=== PATIENT | male | born 1940 | race Caucasian/White ===

== ENCOUNTER → 2022-02-13 14:02 | Outpatient (BNVA) | payer MEDICARE, SELFPAY | PROVIDERS: PCP Internal Medicine; Visit Provider Psychiatry & Neurology Neurology | DX: M47.812 Spondylosis without myelopathy or radiculopathy, cervical region (principal); M48.02 Spinal stenosis, cervical region; G62.9 Polyneuropathy, unspecified; G47.62 Sleep related leg cramps; Z79.899 Other long term (current) drug therapy | CPT/HCPCS: 99212 ==

== ENCOUNTER 2023-01-20 13:48 | Outpatient (REF) | payer SELFPAY | END 2023-01-20 13:49 | disposition home or self-care (01) | LOC: HO.HAP 13:48 | PROVIDERS: Visit Provider Internal Medicine | DX: Z13.89 Encounter for screening for other disorder (principal) ==

== ENCOUNTER → 2023-02-10 15:19 | Outpatient (BNVA) | payer MEDICARE, OTHER, SELFPAY | PROVIDERS: PCP Internal Medicine; Visit Provider Psychiatry & Neurology Neurology | DX: M47.812 Spondylosis without myelopathy or radiculopathy, cervical region (principal); M48.02 Spinal stenosis, cervical region; G62.9 Polyneuropathy, unspecified; G47.62 Sleep related leg cramps; Z79.899 Other long term (current) drug therapy | CPT/HCPCS: 99212 ==

== ENCOUNTER 2023-03-13 10:37 | Outpatient (REF) | payer SELFPAY | END 2023-03-13 10:38 | disposition home or self-care (01) | LOC: HO.HAP 10:37 | PROVIDERS: Visit Provider Internal Medicine | DX: Z46.1 Encounter for fitting and adjustment of hearing aid (principal); H90.3 Sensorineural hearing loss, bilateral | CPT/HCPCS: V5267 ==

== ENCOUNTER 2023-06-11 10:13 | Outpatient (REF) | payer SELFPAY | END 2023-06-11 10:14 | disposition home or self-care (01) | LOC: HO.HAP 10:13 | PROVIDERS: Visit Provider Internal Medicine | DX: Z46.1 Encounter for fitting and adjustment of hearing aid (principal); H90.3 Sensorineural hearing loss, bilateral | CPT/HCPCS: V5267 ==

== ENCOUNTER 2023-08-12 13:47 | Outpatient (AMB) | payer MEDICARE, SELFPAY ==
--- NOTE | 2023-08-12 13:48 | MHC.OFFVIS ---
Intake Vital Signs 08/12/23 13:52 Weight 190 lb 4 oz BP 138/82 Blood Pressure Location Lt brachial Position Sitting Respiration 17 Pulse 76 Pulse Source Palpation Pulse Oximetry (%) 97 Oxygen Delivery Method Room Air Intake Visit Reasons: 6m follow up neuropathy-LVM Intake Note: Pt presents to the office for a 6 month follow up for neuropathy. 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 .No worsening of neuropathy He reports right shoulder pain His balance is good , no falls. 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 He still has residual numbness in right fingers sec to radiculopathy. he also has carpal tunnel syndrome and had surgery 3 years ago and is better His legs cramps are better with gabapentin. No difficulty with bladder or bowel PFSH Medical History Arthritis Carpal tunnel syndrome Hearing loss HTN (hypertension) Hyperlipidemia Neck pain Surgical History History of carpal tunnel release Hx of cataract surgery Social History Household Members: Spouse Alcohol intake: current Alcohol intake frequency: holidays/special occasions only Patient Tobacco Use Status: Former Tobacco user Physical Exam Vital Signs: Last Vital Signs Pulse 76 08/12/23 13:52 Resp 17 08/12/23 13:52 BP 138/82 08/12/23 13:52 Pulse Ox 97 08/12/23 13:52 Oxygen Delivery Method Room Air 08/12/23 13:52 Const General: cooperative, healthy appearing and comfortable Nutritional Appearance: average body habitus Orientation/consciousness: patient oriented x3 Eyes Pupils: Equal, round and reactive pupils present Neuro General: patient oriented x3 Cranial nerves: Yes CN's II-XII intact bilaterally, Yes Facial sensation intact/muscles of mastication intact, Yes Equal, round and reactive pupils present and Yes Normal facial strength present Cognition (Neuro): normal cognition Gait exam (Neuro): Other gait observations present (mild slowness, mild off balance) Motor exam (neuro): 5/5 motor strength present throughout Deep tendon reflexes (DTR's): Right triceps reflex intensity grade: 1+, Left triceps reflex intensity grade: 1+, Rt Biceps (C5, C6): 1+, Left biceps reflex intensity grade: 1+, Right brachioradialis reflex intensity grade: 1+, Left brachioradialis reflex intensity grade: 1+, Right patellar reflex intensity grade: 1+ and Left patellar reflex intensity grade: 1+ Assessment & Plan Assessment & Plan (1) Cervical spondylosis: Code(s): M47.812 - Spondylosis without myelopathy or radiculopathy, cervical region (2) Spinal stenosis of cervical region: Code(s): M48.02 - Spinal stenosis, cervical region (3) Neuropathy: Code(s): G62.9 - Polyneuropathy, unspecified (4) Nocturnal leg cramps: Code(s): G47.62 - Sleep related leg cramps Plan Continue gabapentin 300mg qhs Continue exercises Coding Level of Care Code Est Pt Level 4 (84805) Diagnoses Cervical spondylosis M47.812 Spinal stenosis of cervical region M48.02 Neuropathy G62.9 Nocturnal leg cramps G47.62
[2023-08-12 13:52] VITALS: BP 138/82; PULSE 76; RESP 17; O2SAT 97
== END 2023-08-12 14:06 | disposition home or self-care (01) ==
PROVIDERS: PCP Internal Medicine; Visit Provider Psychiatry & Neurology Neurology
DX: M47.812 Spondylosis without myelopathy or radiculopathy, cervical region (principal); M48.02 Spinal stenosis, cervical region; G62.9 Polyneuropathy, unspecified; G47.62 Sleep related leg cramps
CPT/HCPCS: 99214

== ENCOUNTER → 2023-08-12 13:47 | Outpatient (BNVA) | payer MEDICARE, SELFPAY | PROVIDERS: PCP Internal Medicine; Visit Provider Psychiatry & Neurology Neurology | DX: M47.812 Spondylosis without myelopathy or radiculopathy, cervical region (principal); M48.02 Spinal stenosis, cervical region; G62.9 Polyneuropathy, unspecified; G47.62 Sleep related leg cramps | CPT/HCPCS: 99212 ==

== ENCOUNTER 2023-08-27 10:11 | Outpatient (REF) | payer SELFPAY | END 2023-08-27 10:12 | disposition home or self-care (01) | LOC: HO.HAP 10:11 | PROVIDERS: Visit Provider Internal Medicine | DX: Z46.1 Encounter for fitting and adjustment of hearing aid (principal); H90.3 Sensorineural hearing loss, bilateral | CPT/HCPCS: V5267 ==

== ENCOUNTER 2023-10-28 13:45 | Outpatient (REF) | payer SELFPAY | END 2023-10-28 13:46 | disposition home or self-care (01) | LOC: HO.HAP 13:45 | PROVIDERS: Visit Provider Internal Medicine | DX: Z13.89 Encounter for screening for other disorder (principal) ==

== ENCOUNTER 2024-02-08 11:59 | Outpatient (REF) | payer SELFPAY | END 2024-02-08 12:00 | disposition home or self-care (01) | LOC: HO.HAP 11:59 | PROVIDERS: Visit Provider Internal Medicine | DX: Z46.1 Encounter for fitting and adjustment of hearing aid (principal); H90.3 Sensorineural hearing loss, bilateral | CPT/HCPCS: V5267 ==

== ENCOUNTER 2024-06-13 10:06 | Outpatient (REF) | payer SELFPAY | END 2024-06-13 10:07 | disposition home or self-care (01) | LOC: HO.HAP 10:06 | PROVIDERS: Visit Provider Internal Medicine | DX: Z46.1 Encounter for fitting and adjustment of hearing aid (principal); H90.6 Mixed conductive and sensorineural hearing loss, bilateral | CPT/HCPCS: V5267 ==

== ENCOUNTER → 2024-09-28 14:44 | Outpatient (BNVA) | payer MEDICARE, SELFPAY | PROVIDERS: PCP Internal Medicine; Visit Provider Psychiatry & Neurology Neurology | DX: G56.03 Carpal tunnel syndrome, bilateral upper limbs (principal); G62.9 Polyneuropathy, unspecified; G47.62 Sleep related leg cramps; M47.812 Spondylosis without myelopathy or radiculopathy, cervical region; M48.02 Spinal stenosis, cervical region | CPT/HCPCS: 99212 ==

== ENCOUNTER 2024-11-03 13:33 | Outpatient (REF) | payer MEDICARE, SELFPAY ==
--- NOTE | 2024-11-03 13:41 | EMG_ITS ---
Chief complaint: Left worse than right hand numbness. History of CTR surgery right side 4-5 years ago. Reason for referral: Evaluate for Carpal Tunnel Syndrome Referred by: Dr. Uribe Procedure done: Bilateral upper extremities NCS/EMG Precautions and/or limitations: None The limb temperature was monitored continuously and remained between 32-36 degrees C during the performance of the NCS. Nerve Conduction Studies Anti Sensory Summary Table ?Stim Site NR Onset (ms) Norm Onset (ms) Peak (ms) Norm Peak (ms) O-P Amp (?V) Norm O-P Amp Site1 Site2 Delta-0 (ms) Dist (cm) Duc (m/s) Norm Duc (m/s) Left Median Anti Sensory (2nd Digit) Wrist ? 4.3 5.0 <3.6 1.0 >10 Wrist 2nd Digit 4.3 14.0 33 Right Median Anti Sensory (2nd Digit) Wrist ? 3.0 3.6 <3.6 5.8 >10 Wrist 2nd Digit 3.0 14.0 47 Right Radial Anti Sensory (Thumb) Forearm ? 1.8 2.4 <3.1 8.7 Forearm Thumb 1.8 0.0 Left Ulnar Anti Sensory (5th Digit) Wrist ? 0.9 3.3 <3.7 17.0 >15.0 Wrist 5th Digit 0.9 14.0 156 Right Ulnar Anti Sensory (5th Digit) Wrist ? 2.2 3.7 <3.7 15.9 >15.0 Wrist 5th Digit 2.2 14.0 64 Motor Summary Table ?Stim Site NR Onset (ms) Norm Onset (ms) O-P Amp (mV) Norm O-P Amp iAmp (mV) Amp (1st) (%) Site1 Site2 Delta-0 (ms) Dist (cm) Duc (m/s) Norm Duc (m/s) Left Median Motor (Abd Poll Brev) Wrist ? 4.5 <3.9 4.0 >4.5 4.5 100.0 Elbow Wrist 4.1 21.0 51 >45 Elbow ? 8.6 3.8 4.2 95.0 Right Median Motor (Abd Poll Brev) Wrist ? 3.8 <3.9 7.6 >4.5 8.8 100.0 Elbow Wrist 3.9 19.5 50 >45 Elbow ? 7.7 7.3 8.2 96.1 Left Ulnar Motor (Abd Dig Minimi) Wrist ? 2.8 <3.0 7.9 >5 9.1 100.0 B Elbow Wrist 3.5 18.5 53 >45 B Elbow ? 6.3 7.5 8.9 94.9 A Elbow B Elbow 1.7 10.0 59 >45 A Elbow ? 8.0 7.9 9.4 100.0 Right Ulnar Motor (Abd Dig Minimi) Wrist ? 3.0 <3.0 9.6 >5 11.8 100.0 B Elbow Wrist 3.4 18.0 53 >45 B Elbow ? 6.4 9.4 11.8 97.9 A Elbow B Elbow 1.6 10.0 63 >45 A Elbow ? 8.0 6.7 8.8 69.8 EMG ?Side Muscle Nerve Root Ins Act Fibs Psw Amp Dur Poly Recrt Int Pat Comment Right Abd Poll Brev Median C8-T1 Nml Nml Nml Nml Nml 0 Nml Complete Right 1stDorInt Ulnar C8-T1 Nml Nml Nml Nml Nml 0 Nml Complete Right FlexCarRad Median C6-7 Nml Nml Nml Nml Nml 0 Nml Complete Right Biceps Musculocut C5-6 Nml Nml Nml Nml Nml 0 Nml Complete Right Triceps Radial C6-7-8 Nml Nml Nml Nml Nml 0 Nml Complete Right Deltoid Axillary C5-6 Nml Nml Nml Nml Nml 0 Nml Complete Left 1stDorInt Ulnar C8-T1 Nml Nml Nml Nml Nml 0 Nml Complete Left FlexCarRad Median C6-7 Nml Nml Nml Nml Nml 0 Nml Complete Left Biceps Musculocut C5-6 Nml Nml Nml Nml Nml 0 Nml Complete Left Triceps Radial C6-7-8 Nml Nml Nml Nml Nml 0 Nml Complete Left Deltoid Axillary C5-6 Nml Nml Nml Nml Nml 0 Nml Complete Left Abd Poll Brev Median C8-T1 Nml Nml Nml Nml Nml 0 Nml Complete FINDINGS: Left median motor nerve showed prolonged distal latency, small amplitude and normal conduction velocity. Left median sensory nerve showed prolonged peak latency and small amplitude. Right median sensory nerve showed normal peak latency but small amplitude. All other nerves tested were within normal. Concentric needle EMG was performed in selected muscles of the bilateral upper extremities. Study did not reveal signs of electric abnormalities as shown in the table above. IMPRESSION: 1. This is an abnormal study. 2. There is electrodiagnostic evidence for left moderate-severe median neuropathy at the wrist, consistent with carpal tunnel syndrome. 3. Despite previous surgery, there is still electrodiagnostic evidence for right chronic mild median neuropathy at the wrist. 4. There is no electrodiagnostic evidence for ulnar neuropathy, brachial plexopathy, or cervical radiculopathy. Thank you for your kind referral. Maria T Madera MD, KESHA Board Certified, [place] Board [employer] and Rehabilitation (ABPMR) Board Certified, [place] Board of Electrodiagnostic Medicine (ABEM) CODIN [phone] x [phone] MTDD
--- OUTSIDE RECORDS SUMMARY | 2024-11-03 17:07 | XMS_ITS | Clinical Summary ---
Author Organization [facility] Address [address] [place] [address] Phone Care Team Providers Care Forensic Anthropologist Name Role Phone Germán Rosenberg MD Primary Care Provider [phone] Allergies Active Allergy Reactions Criticality Noted Date Comments Timolol 11/17/2016 Medications cholecalciferol, vitamin D3, (D3-50 CHOLECALCIFEROL ORAL) Take 2,000 Units by mouth daily. Active atorvastatin (LIPITOR) 20 mg tablet Take 20 mg by mouth daily. 1 Active cyanocobalamin, vitamin B-12, 1,000 mcg capsule Take 1 capsule by mouth daily. Active dorzolamide (TRUSOPT) 2 % ophthalmic solution 2 Drops 3 times daily. Active influenza quadrivalent, 65 yrs and up,, PF, (Fluzone HighDose Quad 20-21 PF) (PF) vaccine ADM 0.7ML IM UTD 0 Active gabapentin (NEURONTIN) 300 mg capsule 2 Active latanoprost (XALATAN) 0.005 % ophthalmic solution PLACE ONE DROP INTO BOTH EYES QHS 0 Active lisinopriL (PRINIVIL,ZESTRIL) 10 mg tablet TK 1 T PO QD 0 Active Active Problems Problem Noted Date Diagnosed Date Glaucoma 11/05/2017 Hyperlipidemia 11/05/2017 Allergic rhinitis 11/17/2016 Obstructive sleep apnea syndrome 11/17/2016 Immunizations Name Administration Dates Next Due Earnest SARS-CoV-2 COVID-19, mRNA, LNP-S, preservative free 05/18/2021,10/17/2020,09/26/2020 Surgical History Surgery Date Site/Laterality Comments EYE SURGERY PROCEDURE: HISTORICAL EYE SURGERY Medical History Medical History Date Comments Glaucoma 11/05/2017 DX:Glaucoma Hyperlipidemia 11/05/2017 DX:Hyperlipidemi a Allergic rhinitis 11/17/2016 DX:Allergic rh initis Obstructive sleep apnea syndrome 11/17/2016 DX:Obstructive sleep apnea syndrome Social History Tobacco Use Types Packs/Day Years Used Date Smoking Tobacco: Former Cigarettes Smokeless Tobacco: Never Alcohol Use Standard Drinks/Week Comments Yes 0 (1 standard drink = 0.6 oz pur e alcohol) Sex and Gender Information Value Date Recorded Sex Assigned at Not on file Legal Sex Male 12:52 AM EST Gender Identity Not on file Sexual Orientation Not on file Obstetrics History Last Filed Vital Signs Vital Sign Reading Time Taken Comments Blood Pressure 135/75 01/08/2023 2:21 PM EDT Sit ting L Arm Pulse - - Temperature - - Respiratory Rate - - Oxygen Saturation - - Inhaled Oxygen Concentration - - Weight 85.7 kg (189 lb) 01/08/2023 2:21 PM EDT Height 170.2 cm (5' 7 ) 01/08/2023 2:21 PM EDT Body Mass Index 29.6 01/08/2023 2:21 PM EDT Plan of Treatment Upcoming Encounters Date Type Department Care Team (Late st Contact Info) Description 01/10/2025 1:00 PM EDT Office Visit Pulmonolgy - [place] [address] [facility] [address] [place] [address] Jyothi Craig NP [address] [facility] [address] [place] [address] Health Maintenance Due Date Last Done Comments DTaP,Tdap,and Td Vaccines (1 - Tdap) 1959 Pneumococcal Vaccine: 50+ Years (1 of 1 - PCV) 1990 Zoster Vaccines (1 of 2) 1990 RSV Immunization Patients 60 + Years Old (1 - 1-dose 75+ series) 2015 Cholesterol Screening (Lipid Panel) 07/27/2022 Depression Screening 07/27/2022 Falls Risk Assessment 07/27/2022 Medicare Annual Wellness Visit 07/27/2022 Social Influencers of Health Screening 07/27/2022 COVID-19 Vaccine (2023-2 5 season) 2024 05/18/2021, 10/17/2020, 09/26/2020 Influenza Vaccine (#1) 2024 HIB Vaccines Aged Out No longer eligi ble based on patient's age to complete this topic HPV Vaccines Aged Out No longer eligi ble based on patient's age to complete this topic Hepatitis A Vaccines Aged Out No long er eligible based on patient's age to complete this topic Hepatitis B Vaccines Aged Out No long er eligible based on patient's age to complete this topic IPV Vaccines Aged Out No longer eligi ble based on patient's age to complete this topic MMR Vaccines Aged Out No longer eligi ble based on patient's age to complete this topic Meningococcal ACWY Vaccine Aged Out N o longer eligible based on patient's age to complete this topic Meningococcal B Vacine Aged Out No lo nger eligible based on patient's age to complete this topic RSV Immunization Patients Under 20 months Aged Out No longer eligible b ased on patient's age to complete this topic Varicella Vaccines Aged Out No longer eligible based on patient's age to complete this topic Procedures Procedure Name Priority Date/Time Associated Diagnosis Comments POLYSOMNOGRAPHY Routine 10/11/2024 3:12 PM EST from Last 3 Months Results * Polysomnography (10/11/2024 3:12 PM EST) Historical Provider [facility] ORDERABLES F inal Result from Last [address] [place] [id number] MEDICARE [employer] Care Teams Forensic Anthropologist Relationship Specialty Start Date End Date Germán Rosenberg MD [address] [place] [address] PCP - General Internal Medicine 09/21/24
--- OUTSIDE RECORDS SUMMARY | 2024-11-03 17:07 | XMS_ITS | Data Portability ---
Author Organization [place] - [facility], Allergy Address [address] [address] Care Team Providers Care Donor Technician Name Role Phone REYNALDO PEACE Primary Care Provider Assessment Encounter Date Assessment Date Assessment LastModified by Organization Details LastModified Time 07/19/2024 07/19/2024 Patient with chronic eustachian tube dysfunction. Left T-tube is still in good position and patent and is currently demonstrating infection and otorrhea. Right ossiculoplasty prosthesis has finally extruded and was removed from the ear canal today. Small area of granulation tissue partially resected with Bellucci scissors. Otorrhea present bilaterally. Recommend Ciprodex drops to be placed in both ears twice a day for 10 days. We will let the tympanic membrane on the right heal and the inflammation to subside in anticipation of updated audiometric testing to assess his response to prosthesis removal. Not available 07/19/2024 16:31:26 09/20/2024 09/20/2024 Patient with chronic eustachian tube dysfunction. Recently noted bilateral otorrhea has resolved. No need for additional treatment. The left T-tube is still in good position and patent The site of ossiculoplasty prosthesis removal on the right has healed well, now demonstrating an intact drum. Audiometric testing reviewed with the patient. He continues to demonstrate a similar bilateral mixed hearing loss, easily amenable to binaural amplification. 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 Follow-up with PA in 6 months for next tube check. [email or web address] Not available 09/20/2024 11:14:42 Plan of Treatment Reminders Order Date Submit Date Provider Last Modified By Organization Details Last Modified Time Details Appointments Establish ed 15 2024 02:00P M RAFAEL PETTIT PA-C Not available Not available Not available Lab None recorded. Referral None recorded. Procedures None recorded. Surgeries None recorded. Imaging None recorded. Medication Orders ciproflox acin 0.3 %-dexamet hasone 0.1 % ear drops,lanie pension 2023 025 [place] [id number], [address], [place], [place], [phone], 09/20/2024 10:54:05 Patient TargetsNo targets recorded. Patient InstructionsNo instructions recorded. Reason for Referral None Reported. Results Created Date Observation Date Name Description Value Unit Range Abnormal Flag Note LastModifiedBy Organization Detail LastModifiedTime 09/20/19 25 audio gram No observ ation record ed. BARCODE Not Available 2024 11:55:13 Result Notes None recorded. Problems Name Problem SNOMED Code Status Onset Date Resolution Date Notes Provider Name and Address Organization Details Recorded Time [facility] 146171985 Active 2015 [facility]; Note: Date Diagnose d: 6 8:47 AM (R42) Not Available [facility] 4 02:40:44 Otorrhea of left ear 09407973941 24783 Completed 201603/25/2024 Otorrhea , left ear; Note: Date Diagnose d: 7 1:53 PM (H92.12) Not Available [facility] 4 02:40:46 Dysfunct ion of eustachi an tube 50035475 Active 2013 Eustachi an tube dysfunct ion; Note: Date Diagnose d: 07/11/20 14 10:31 AM (381.81) Not Available [facility] 4 02:40:46 Polyp of right middle ear 55118087752 34168 Active 2023 Polyp of right middle ear; Note: Date Diagnose d: 4 3:19 PM (H74.41) Not Available [facility] 4 02:40:48 Sensorin eural hearing loss in right ear 90252176077 100 Active 2016 Sensorin eural hearing loss, unilater al, right ear, with restrict ed hearing on the contrala teral side; Note: Date Diagnose d: 07/14/20 17 3:19 PM (H90.A21 ) Not Available [facility] 4 02:40:50 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 Other specifie d superfic ial mycoses; Note: Date Diagnose d: 3 2:23 PM (B36.8) Not Available [facility] 4 02:40:52 Mixed conducti ve and sensorin eural hearing loss, bilatera l 912247957 Active 2015 Mixed HL, bilatera l; Note: Date Diagnose d: 07/11/20 14 9:41 AM (389.22) ; Start Date : 07/11/20 14 Mixed conducti ve and sensorin eural hearing loss, bilatera l; Note: Date Diagnose d: 10/01/2015 8:57 AM (H90.6) [mapped from ICD9 code: 389.22] Not Available [facility] 4 02:40:52 Bilatera l disorder of Eustachi an tubes 18623733364 45457 Active 2017 Other specifie d disorder s of Eustachi an tube, bilatera l; Note: Date Diagnose d: 8 3:15 PM (H69.83) Not Available [facility] 4 02:40:51 Disorder of left Eustachi an tube 24004998837 23015 Active 2015 Other specifie d disorder s of Eustachi an tube, left ear; Note: Changed from H69.83 to H69.82 ( 6 9:00 AM) , Date Diagnose d: 10/01/2015 8:57 AM (H69.83) [mapped from ICD9 code: 381.81] Not Available [facility] 4 02:40:43 Otorrhag ia of right ear 36292817290 26844 Active 2023 Otorrhag ia, right ear; Note: Date Diagnose d: 4 3:19 PM (H92.21) Not Available [facility] 4 02:40:46 Otorrhea 59680097 Active 2013 Otorrhea ; Note: Date Diagnose d: 07/11/20 14 10:31 AM (388.60) Not Available [facility] 4 02:40:47 Impacted cerumen in right ear 94109430510 44031 Active 2016 Impacted cerumen, right ear; Note: Date Diagnose d: 7 1:53 PM (H61.21) Not Available [facility] 4 02:40:51 Impacted cerumen of bilatera l ears 22540696659 18950 Active 2018 Impacted cerumen, bilatera l; Note: Date Diagnose d: 9 10:41 AM (H61.23) Not Available [facility] 4 02:40:50 Mixed conducti ve and sensorin eural hearing loss of left ear 50223512438 107 Active 2016 Mixed conducti ve and sensorin eural hearing loss, unilater al, left ear with restrict ed hearing on the contrala teral side; Note: Date Diagnose d: 07/14/20 17 3:19 PM (H90.A32 ) Not Available [facility] 4 02:40:43 Partial loss of ear ossicles 28186165 Active 2015 Partial loss of ear ossicles , right ear; Note: Date Diagnose d: 10/01/2015 9:01 AM (H74.321 ) Not Available [facility] 4 02:40:52 Otorrhea of bilatera l ears 00494611218 77511 Active 2023 MARGY YOUNG MD [address] [place] [address], [facility] PATRICIA glass, [address] , [facility] - [facility] 4 16:28:58 Problem Notes None recorded. Procedures Surgical History Date Name Laterality Status Provider Name and Address Organization Details Recorded Time 5 Air & Speech Audio with Tymps (95795, 51869 & 82009) completed ALTHEA BARCENAS [address] [facility],[place] [address], [place], [address], [facility] 09/20/2024 10:04:02 4 EAC debris removal with microscope completed MARGY YOUNG MD [address] [facility],[place] [address], [place], [address], [facility] 07/19/2024 16:28:11 Imaging Results Imaging Date Name Status LastModified by Organiz ation Details LastModified Time 09/20/2024 audiogram completed BARCODE Information no t available 09/20/2024 11:55:13 Procedure Notes None recorded. Medical Equipment None Reported. Allergies No known drug allergies Medications Name Sig Start Date Stop Date Status Note LastModified by Organization Details LastModified Time latanopro st 0.005 % eye drops PLACE ONE DROP INTO BOTH EYES EVERY NIGHT AT BEDTIME 07/19 completed Not Available Not Available Not Available atorvasta tin 20 mg tablet TAKE 1 TABLET BY MOUTH EVERY DAY active Not Available Not Available No t Available lisinopri l 20 mg tablet TAKE 1 TABLET BY MOUTH EVERY DAY active Not Available Not Available No t Available amlodipin e 5 mg tablet TAKE 1 TABLET BY MOUTH EVERY DAY active Not Available Not Available No t Available clotrimaz ole-betam ethasone 1 %-0.05 % topical cream Apply 1 a small amount twice a day 07/19 completed Medicati on ID: [id number] D uration Value: 14 Brand Name: fabian bonds-hunter cardoza rocco Send Method: E-Prescr ibed Sub s Allowed: subs OK Speci al Instruct ion: Apply with fingerti p to external ear TID X 2 week and as needed M edicastephanieo nGeneric Name: fabian bonds-hunter pittso ne Not Available Not Available Not Available lisinopri l 10 mg tablet TAKE 1 TABLET BY MOUTH EVERY DAY 07/19 completed Not Available Not Available Not Available gabapenti n 300 mg capsule TAKE 1 CAPSULE BY MOUTH EVERY DAY active Not Available Not Available No t Available dorzolami de 2 % eye drops INSTILL 1 DROP INTO BOTH EYES TWICE DAILY active Not Available Not Available No t Available tobramyci n 0.3 %-dexamet hasone 0.1 % eye drops,lanie pension SHAKE LIQUID AND INSTILL 4 DROPS IN AFFECTED EAR TWICE DAILY 07/19 completed Not Available Not Available Not Available Vitamin D3 25 mcg (1,000 unit) capsule 2013 active Medicati on ID: [id number] Br and Name: Vitamin D3 Send Method: E-Prescr ibed Sub s Allowed: subs OK Medic ationGen ericName : Vitamin D3 Not Available Not Available Not Available ciproflox acin 0.3 %-dexamet hasone 0.1 % ear drops,lanie pension SHAKE LIQUID AND INSTILL 4 DROPS TO AFFECTED EAR TWICE DAILY FOR 7 DAYS 09/20 completed Not Available Not Available Not Available Alphagan P 0.1 % eye drops 06/30 completed Medicati on ID: [id number] Du ration Value: 24 Reason: () Brand Name: Alphagan P Send Method: E-Prescr ibed Sub s Allowed: subs OK Speci al Instruct ion: INT 1 GTT IN BOTH EYES TID Medi cationGe nericNam e: Alphagan P Not Available Not Available Not Available Vitals Date Recorded Body height Body mass index (BMI) Body weight Provider Name and Address Organization Details Last Updated DateTime 07/19/2024 170.18 cm 26.3 kg/m2 80850.52 g Kassie Werner [facility] 07/19/2024 16:18:33 Date Recorded Body height Body mass index (BMI) Body weight Provider Name and Address Organization Details Last Updated DateTime 09/20/2024 170.18 cm 26.6 kg/m2 18753.7 g Kathleen Ham [facility] 09/20/2024 10:53:38 Social History None recorded. Functional Status None recorded. Mental Status None recorded. Family History Nothing Reported. Medical History Condition Response Arthritis Y Hypertension Y Glaucoma Y Speech Delay Y High Cholesterol Y Past Encounters Encounter ID Performer Location Encounter Start Date Encounter Closed Date Diagnosis/Indication Diagnosis SNOMED-CT Code Diagnosis ICD10 Code Diagnosis Note [id number] MARGY YOUNG MD [facility] [address] [address] 07/19/2024 15:15:30 07/19/2024 16:35:39 Otorrhea of bilateral ears 5778854550 220325 H92.13 Partial lo ss of ear ossicles 73217434 H74.321 [id number] MARGY YOUNG MD [facility] [address] [address] 09/20/2024 09:46:14 09/20/2024 11:15:42 Partial loss of ear ossicles 52616648 H74.321 Bilateral disorder of Eustachian tubes 3309417186 019473 H69.83 Mixed cond uctive and sensorineural hearing loss, bilateral 400636072 H90.6 Right Ear:Mild to profound MHL with good speech discrimina tion.Type A tympanogra m.Left Ear:Severe rising to a mild MHL sloping to a profound HF HL with good speech discrimina tion.Type B tympanogra m. [id number] ALTHEA BARCENAS [facility] [address] [address] 09/20/2024 10:03:21 09/21/2024 07:45:39 Bilateral disorder of Eustachian tubes 8783454570 134249 H69.83 Right Ear:Mild to profound MHL with good speech discrimina tion.Type A tympanogra m.Left Ear:Severe rising to a mild MHL sloping to a profound HF HL with good speech discrimina tion.Type B tympanogra m. Health Concerns Section Related Observation LastModified by Organization Detai ls LastModified Time None Recorded Concern Status LastModified by Organization Details LastModified Time None Recorded Advance Directives Directive None Recorded Payers Encounter Date Sequence Insurance Name Policy Number Policy Kimble Covered Member ID Kimble Member ID Guarantor Name 07/19/2024 1 [place] [facility] [id number] Roverto Fer [facility] 07/19/2024 2 [employer] [id number] [facility] [id number] [facility] 09/20/2024 1 [place] [facility] Roverto Nash [id number] R[employer]to [employer] 09/20/2024 2 [employer] [id number] Roverto Nash [id number] Roverto [employer] 09/20/2024 1 [place] [facility] Roverto Nash [id number] Roverto Nash 09/20/2024 2 [employer] [id number] Roverto Nash [id number] Roverto Nash Notes Date Note Type Note Provider Name and Address Organization Details Recorded Time 07/19/2024 text/html 84-year-old male with chronic eustachian tube dysfunction and history of right cholesteatoma, status post right tympano-ossiculoplas ty with mastoidectomy in 2002. Patient has long-term exposure of the right middle ear ossiculoplasty prosthesis which we have been monitoring over the years. He also has a long-term T-tube on the left which has been well-tolerated over the years. Occasional formation of granulation polyp around the prosthesis. Patient noting seeing some brownish and red discharge from the right ear for the past 4 to 5 months. MARGY YOUNG MD [address] [place] [address],[address], [address], [facility] 07/19/2024 16:31:58 09/20/2024 text/html 84-year-old male with chronic eustachian tube dysfunction and history of right cholesteatoma, status post right tympano-ossiculoplas ty with mastoidectomy in 2002. Patient has long-term exposure of the right middle ear ossiculoplasty prosthesis which we have been monitoring over the years, which finally extruded at his last visit and was removed.. He also has a long-term T-tube on the left which has been well-tolerated over the years. Patient presented last month with bilateral otorrhea, treated with topical Ciprodex drops. Otorrhea has resolved. Ears feel good today. Patient returns for reevaluation and audiometric testing depending on his response to therapy.Patient using binaural ITE amplification dispensed at [facility] audiology MARGY YOUNG MD [address] [place] [address],[address], [address], [facility] - [facility] 09/20/2024 11:14:53
== END 2024-11-03 13:34 | disposition home or self-care (01) ==
LOC: HO.NEURO 13:33
PROVIDERS: PCP Internal Medicine; Visit Provider Psychiatry & Neurology Neurology
DX: G56.03 Carpal tunnel syndrome, bilateral upper limbs (principal)
CPT/HCPCS: 95886; 95911

== ENCOUNTER → 2024-11-03 13:41 | Outpatient (BNV) | payer MEDICARE, SELFPAY | PROVIDERS: PCP Internal Medicine; Visit Provider Physical Medicine & Rehabilitation | DX: G56.03 Carpal tunnel syndrome, bilateral upper limbs (principal) | CPT/HCPCS: 95886; 95911 ==

== ENCOUNTER 2024-11-18 10:00 | Outpatient (REF) | payer SELFPAY | END 2024-11-18 10:01 | disposition home or self-care (01) | LOC: HO.HAP 10:00 | PROVIDERS: Visit Provider Internal Medicine | DX: Z46.1 Encounter for fitting and adjustment of hearing aid (principal); H90.6 Mixed conductive and sensorineural hearing loss, bilateral | CPT/HCPCS: V5267 ==

== ENCOUNTER 2024-12-06 14:36 | Outpatient (AMB) | payer MEDICARE, SELFPAY ==
[2024-12-06 14:50] VITALS: BP 124/70; PULSE 72; O2SAT 97; BMI 29.5
--- NOTE | 2024-12-06 14:50 | MHC.OFFVIS ---
Vital Signs 12/06/24 14:50 Height 5 ft 7 in Weight 188 lb 4 oz BMI 29.5 BP 124/70 Blood Pressure Location Lt brachial Position Sitting Pulse 72 Pulse Source Pulse Oximeter Pulse Oximetry (%) 97 Oxygen Delivery Method Room Air Intake Visit Reasons: Follow up 2 mo Intake Note: Patient presents 2 month follow up neuropathy. EMG done on 11/03/24. 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 His bilateral hand pain is better with the wrist braces, he has a h/o of R. hand carpal tunnel release of median nerve, however still c/o numbness and tingling in his first two digits, however the thumb is better on the r. hand. His l. hand gets numb only at night, however the brace has also helped. During the day he doesn't notice any neuropathy or burning pain. 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 His balance is good, no vertigo, no dizziness and no falls. He is independent in all ADLS and lives with his , he can shower and dress himself, he cleans the house and descends down stair to get laundry. His l. leg, he gets cramps and spasms with numbness and tingling in bilaterally from the plantar surface to the knees, it has improved with Gabapentin 300mg PO at night. No difficulty with bladder or bowel, BM daily. Memory is stable. He has sleep apnea and has been using his CPAP for over 15 years and sleeps well with it. He monitors his sleep compliance data on the Match aleena, he is compliant 90/90 days, with 9 hours and 14min per night and AHI is 1.06. [facility] Medical History Carpal tunnel syndrome on both sides Hyperlipidemia Carpal tunnel syndrome Hearing loss HTN (hypertension) Arthritis Neck pain Surgical History History of carpal tunnel release Hx of cataract surgery Social History Household Members: Spouse Alcohol intake: current Alcohol intake frequency: holidays/special occasions only Patient Tobacco Use Status: Former Tobacco user Physical Exam Vital Signs: Last Vital Signs Pulse 72 12/06/24 14:50 BP 124/70 12/06/24 14:50 Pulse Ox 97 12/06/24 14:50 Oxygen Delivery Method Room Air 12/06/24 14:50 BMI result Body Mass Index 29.5 Const General: cooperative, healthy appearing and comfortable Nutritional Appearance: average body habitus Orientation/consciousness: patient oriented x3 Eyes Pupils: Equal, round and reactive pupils present Neuro General: patient oriented x3 Cranial nerves: Yes CN's II-XII intact bilaterally, Yes Facial sensation intact/muscles of mastication intact, Yes Equal, round and reactive pupils present and Yes Normal facial strength present Cognition (Neuro): normal cognition Gait exam (Neuro): Other gait observations present (mild slowness, mild off balance) Motor exam (neuro): 5/5 motor strength present throughout Deep tendon reflexes (DTR's): Right triceps reflex intensity grade: 1+, Left triceps reflex intensity grade: 1+, Rt Biceps (C5, C6): 2+, Left biceps reflex intensity grade: 2+, Right brachioradialis reflex intensity grade: 2+, Left brachioradialis reflex intensity grade: 2+, Right patellar reflex intensity grade: 1+ and Left patellar reflex intensity grade: 1+ Psych Attitude: cooperative Thought process: Normal thought process present Thought content: Normal thought content present Results Reviewed Results Reviewed: [employer] aleena data: DAVID compliance report Aug 2024 to November 2024 Match aleena, he is compliant 90/90 days, with 9 hours and 14min per night and AHI is 1.06. Leaks? and Pressures are [id number] EMG / NCS study reviewed in detail with patient re: Median vs. Radial vs. brachial / cervical plexopathy vs. Radiculopathy vs. Neruopathy. IMPRESSION: 1. This is an abnormal study. 2. There is electrodiagnostic evidence for left moderate-severe median neuropathy at the wrist, consistent with carpal tunnel syndrome. 3. Despite previous surgery, there is still electrodiagnostic evidence for right chronic mild median neuropathy at the wrist. 4. There is no electrodiagnostic evidence for ulnar neuropathy, brachial plexopathy, or cervical radiculopathy. Assessment & Plan Assessment & Plan (1) Carpal tunnel syndrome on both sides: Code(s): G56.03 - Carpal tunnel syndrome, bilateral upper limbs Category: Medical (2) Cervical spondylosis: Code(s): M47.812 - Spondylosis without myelopathy or radiculopathy, cervical region Category: Medical (3) Spinal stenosis of cervical region: Code(s): M48.02 - Spinal stenosis, cervical region Category: Medical (4) Neuropathy: Code(s): G62.9 - Polyneuropathy, unspecified Category: Medical (5) Nocturnal leg cramps: Code(s): G47.62 - Sleep related leg cramps Category: Medical Plan Continue gabapentin 300mg qhs Continue exercises Wrist splints keren hands Reviewed EMG NCS UE with ashli today. Patient Instructions: Sleep Hygiene provided: set a scheduled bedtime and wake time to help regulate the circadian rhythm and balance the release of pituitary hormones. Sleep in a dark room, temperatures below 68 degrees, and no devices n bed. Limit caffeinated products 6 hours prior to bed, and limit fluids 2-4 hours prior to bed. Gentle night yoga, diffusing essential oils, and playing soft music can be relaxing. Coding Level of Care Code Est Pt Level 4 (74289) Diagnoses Carpal tunnel syndrome on both sides G56.03 Cervical spondylosis M47.812 Spinal stenosis of cervical region M48.02 Neuropathy G62.9 Nocturnal leg cramps G47.62 Time Spent (min) 30
--- OUTSIDE RECORDS SUMMARY | 2024-12-06 17:50 | XMS_ITS | Data Portability ---
Author Organization [place] - [facility], Allergy Address [address] [address] Care Team Providers Care Automatic Fabric Cutter Name Role Phone REYNALDO PEACE Primary Care [...] to assess his response to prosthesis removal. 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 Follow-up with PA in 6 months for next tube check. Not available 09/20/2024 11:14:42 Plan of Treatment [...] 0.1 % ear drops,lanie pension 2023 025 [place] [id number], [address], [place], [place], [phone], 09/20/2024 10:54:05 Patient TargetsNo targets recorded. Patient [...] Recorded Time Dizzines s and giddines s 644945937 Active 2015 Dizzines s and giddines s; Note: Date Diagnose d: 6 8:47 AM (R42) Not Available [facility] 4 02:40:44 Otorrhea of left ear 70426830315 59344 Completed 201603/25/2024 Otorrhea , left ear; Note: Date Diagnose d: 7 1:53 PM (H92.12) Not Available [facility] 4 02:40:46 Dysfunct ion of eustachi an tube 49853220 Active 2013 Eustachi an tube dysfunct ion; Note: Date Diagnose d: 07/11/20 14 10:31 AM (381.81) Not Available [facility] 4 02:40:46 Polyp of right middle ear 96601670277 05143 Active 2023 Polyp of right middle ear; Note: Date Diagnose d: 4 3:19 PM (H74.41) Not Available [facility] 4 02:40:48 Sensorin eural hearing loss in right ear 88121529466 100 Active 2016 Sensorin eural hearing loss, unilater al, right ear, with restrict ed hearing on the contrala teral side; Note: Date Diagnose d: 07/14/20 17 3:19 PM (H90.A21 ) Not Available [facility] 4 02:40:50 Superfic ial mycosis 092083636 Active 2022 Other specifie d superfic ial mycoses; Note: Date Diagnose d: 3 2:23 PM (B36.8) Not Available [facility] 4 02:40:52 Mixed conducti ve and sensorin eural hearing loss, bilatera l 699343675 Active 2015 Mixed HL, bilatera l; Note: Date Diagnose d: 07/11/20 14 9:41 AM (389.22) ; Start Date : 07/11/20 14 Mixed conducti ve and sensorin eural hearing loss, bilatera l; Note: Date Diagnose d: 10/01/2015 8:57 AM (H90.6) [mapped from ICD9 code: 389.22] Not Available [facility] 4 02:40:52 Bilatera l disorder of Eustachi an tubes 89408441885 05173 Active 2017 Other specifie d disorder s of Eustachi an tube, bilatera l; Note: Date Diagnose d: 8 3:15 PM (H69.83) Not Available [facility] 4 02:40:51 Disorder of left Eustachi an tube 96933199401 42422 Active 2015 Other specifie d disorder s of Eustachi an tube, left ear; Note: Changed from H69.83 to H69.82 ( 6 9:00 AM) , Date Diagnose d: 10/01/2015 8:57 AM (H69.83) [mapped from ICD9 code: 381.81] Not Available [facility] 4 02:40:43 Otorrhag ia of right ear 39654213876 39491 Active 2023 Otorrhag ia, right ear; Note: Date Diagnose d: 4 3:19 PM (H92.21) Not Available [facility] 4 02:40:46 Otorrhea 13096324 Active 2013 Otorrhea ; Note: Date Diagnose d: 07/11/20 14 10:31 AM (388.60) Not Available [facility] 4 02:40:47 Impacted cerumen in right ear 24479329591 01549 Active 2016 Impacted cerumen, right ear; Note: Date Diagnose d: 7 1:53 PM (H61.21) Not Available [facility] 4 02:40:51 Impacted cerumen of bilatera l ears 65123481969 64652 Active 2018 Impacted cerumen, bilatera l; Note: Date Diagnose d: 9 10:41 AM (H61.23) Not Available [facility] 4 02:40:50 Mixed conducti ve and sensorin eural hearing loss of left ear 74408114079 107 Active 2016 Mixed conducti ve and sensorin eural hearing loss, unilater al, left ear with restrict ed hearing on the contrala teral side; Note: Date Diagnose d: 07/14/20 17 3:19 PM (H90.A32 ) Not Available [facility] 4 02:40:43 Partial loss of ear ossicles 90618120 Active 2015 Partial loss of ear ossicles , right ear; Note: Date Diagnose d: 10/01/2015 9:01 AM (H74.321 ) Not Available [facility] 4 02:40:52 Otorrhea of bilatera l ears 41483885122 24204 Active 2023 MARGY YOUNG MD [address] [place] [address], [facility] PATRICIA glass, [address] , [facility] - [facility] 4 16:28:58 Problem Notes None recorded. Procedures Surgical History Date Name Laterality Status Provider Name and Address Organization Details Recorded Time 5 Air & Speech Audio with Tymps (79193, 25943 & 77381) completed ALTHEA BARCENAS 100 [facility],[place] [address], [place], [address], [facility] 09/20/2024 10:04:02 4 EAC debris removal with microscope completed MARGY YOUNG MD 100 [facility],[place] [address], [place], [address], [facility] 07/19/2024 16:28:11 Imaging Results Imaging Date Name [...] a day 07/19 completed Medicati on ID: [id number] D uration Value: 14 Brand Name: fabian [...] unit) capsule 2013 active Medicati on ID: 24087 Br and Name: Vitamin D3 Send Method: [...] eye drops 06/30 completed Medicati on ID: [id number] Du ration Value: 24 Reason: () Brand [...] Updated DateTime 07/19/2024 170.18 cm 26.3 kg/m2 41300.52 g Kassie Werner [facility] 07/19/2024 16:18:33 Date Recorded Body height Body mass index (BMI) Body weight Provider Name and Address Organization Details Last Updated DateTime 09/20/2024 170.18 cm 26.6 kg/m2 68501.7 g Kathleen Ham [facility] 09/20/2024 10:53:38 Social History None recorded. Functional Status None recorded. Mental Status None recorded. Family History Nothing Reported. Medical History Condition Response Arthritis Y Hypertension Y Glaucoma Y Speech Delay Y High Cholesterol Y Past Encounters Encounter ID Performer Location Encounter Start Date Encounter Closed Date Diagnosis/Indication Diagnosis SNOMED-CT Code Diagnosis ICD10 Code Diagnosis Note [id number] MARGY YOUNG MD [facility] [address] [address] 07/19/2024 15:15:30 07/19/2024 16:35:39 Otorrhea of bilateral ears [id number] 433505 H92.13 Partial lo ss of ear ossicles 14556086 H74.321 [id number] MARGY YOUNG MD [facility] [address] [address] 09/20/2024 09:46:14 09/20/2024 11:15:42 Partial loss of ear ossicles 92678338 H74.321 Bilateral disorder of Eustachian tubes 3999300439 294406 H69.83 Mixed cond uctive and sensorineural hearing loss, bilateral 216516144 H90.6 Right Ear:Mild to profound MHL with good speech discrimina tion.Type A tympanogra m.Left Ear:Severe rising to a mild MHL sloping to a profound HF HL with good speech discrimina tion.Type B tympanogra m. [id number] ALTHEA BARCENAS [facility] [address] [address] 09/20/2024 10:03:21 09/21/2024 07:45:39 Bilateral disorder of Eustachian tubes [id number] 458862 H69.83 Right Ear:Mild to profound MHL with [...] Member ID Guarantor Name 07/19/2024 1 MEDICARE B-[place]: [facility] [id number] 46 Roverto Fer [facility] 07/19/2024 2 AETNA [id number] [facility] [id number] [facility] 09/20/2024 1 MEDICARE B-[place]: [facility] Roverto Nash [id number] Roverto [place] 09/20/2024 2 AET[employer] [id number] Roverto [address] [id number] Roverto Nash 09/20/2024 1 MEDICARE B-[place]: [facility] Roverto Nash [id number] 46 Roverto Nash 09/20/2024 2 AET[employer] [id number] Roverto Nash [id number] Roverto Nash Notes Date Note Type [...] 4 to 5 months. MARGY YOUNG MD [address] [place] [address],[address], [address], [facility] 07/19/2024 16:31:58 09/20/2024 text/html 84-year-old male with [...] therapy.Patient using binaural ITE amplification dispensed at [facility] audiology MARGY YOUNG MD [address] [place] [address],[address], [address], [facility] - [facility] 09/20/2024 11:14:53
--- OUTSIDE RECORDS SUMMARY | 2024-12-06 17:50 | XMS_ITS | Clinical Summary ---
Author Organization 175 [facility] Address [address] [place] [address] Phone Care Team Providers Care Lumber Tying Machine Operator Name Role Phone Germán Rosenberg MD Primary Care Provider + [phone] Allergies Active Allergy Reactions Criticality Noted Date [...] 11/17/2016 Immunizations Name Administration Dates Next Due [employer] SARS-CoV-2 COVID-19, mRNA, LNP-S, preservative free 05/18/2021,10/17/2020,09/26/2020 [...] 1:00 PM EDT Office Visit Pulmonolgy - [place] 175 [facility] [address] [place] [address] Jyothi Craig NP 175 [facility] [address] [place] [address] Health Maintenance Due Date Last Done Comments DTaP,Tdap,and Td Vaccines (1 - Tdap) 1959 Pneumococcal Vaccine: 50+ Years (1 of 1 - PCV) 1990 Zoster Vaccines (1 of 2) 1990 RSV Immunization Adult Patients (1 - 1-dose 75+ series) 2015 Cholesterol Screening (Lipid Panel) 07/27/2022 Depression Screening 07/27/2022 Falls Risk Assessment 07/27/2022 Medicare Annual Wellness Visit 07/27/2022 Social Influencers of Health Screening 07/27/2022 COVID-19 Vaccine (2023-2 5 season) 2024 05/18/2021, 10/17/2020, 09/26/2020 Influenza Vaccine (Season Ended) 2025 HIB Vaccines Aged Out No longer eligi [...] age to complete this topic Meningococcal B Vaccine Aged Out No l onger eligible based on patient's age to complete [...] Last [address] [place] [id number] MEDICARE AETNA Care Teams Lumber Tying Machine Operator Relationship Specialty Start Date End Date Germán Rosenberg MD [address] [place] [address] PCP - General Internal Medicine 09/21/24
== END 2024-12-06 15:26 | disposition home or self-care (01) ==
LOC: HO.HSMS 14:36
PROVIDERS: PCP Internal Medicine; Visit Provider Physician Assistant Medical
DX: G56.03 Carpal tunnel syndrome, bilateral upper limbs (principal); M47.812 Spondylosis without myelopathy or radiculopathy, cervical region; M48.02 Spinal stenosis, cervical region; G62.9 Polyneuropathy, unspecified; G47.62 Sleep related leg cramps
CPT/HCPCS: 99214

== ENCOUNTER → 2024-12-06 14:36 | Outpatient (BNVA) | payer MEDICARE, SELFPAY | PROVIDERS: PCP Internal Medicine; Visit Provider Physician Assistant Medical | DX: G56.03 Carpal tunnel syndrome, bilateral upper limbs (principal); M47.812 Spondylosis without myelopathy or radiculopathy, cervical region; M48.02 Spinal stenosis, cervical region; G62.9 Polyneuropathy, unspecified; G47.62 Sleep related leg cramps | CPT/HCPCS: 99212 ==

== ENCOUNTER 2024-12-08 13:41 | Outpatient (REF) | payer MEDICARE, SELFPAY ==
--- OUTSIDE RECORDS SUMMARY | 2024-12-08 16:44 | XMS_ITS | Data Portability ---
Author Organization [place] - [facility], Allergy Address [address] [address] Care Team Providers Care Filling Hand Name Role Phone REYNALDO PEACE Primary Care Provider [phone] Assessment Encounter Date Assessment Date Assessment LastModified [...] to assess his response to prosthesis removal. 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 Follow-up with PA in 6 months for next tube check. [email or web address] Not available 09/20/2024 11:14:42 Plan of Treatment [...] 0.1 % ear drops,lanie pension 2023 025 [id number], [address], [place], [place], [phone], 09/20/2024 10:54:05 Patient TargetsNo targets recorded. Patient [...] Recorded Time Dizzines s and giddines s 256389487 Active 2015 Dizzines s and giddines s; Note: Date Diagnose d: 6 8:47 AM (R42) Not Available [facility] 4 02:40:44 Otorrhea of left ear 91291068493 54350 Completed 201603/25/2024 Otorrhea , left ear; Note: Date Diagnose d: 7 1:53 PM (H92.12) Not Available [facility] 4 02:40:46 Dysfunct ion of eustachi an tube 27712956 Active 2013 Eustachi an tube dysfunct ion; Note: Date Diagnose d: 07/11/20 14 10:31 AM (381.81) Not Available [facility] 4 02:40:46 Polyp of right middle ear 03570097408 98489 Active 2023 Polyp of right middle ear; Note: Date Diagnose d: 4 3:19 PM (H74.41) Not Available [facility] 4 02:40:48 Sensorin eural hearing loss in right ear 46110036152 100 Active 2016 Sensorin eural hearing loss, unilater al, right ear, with restrict ed hearing on the contrala teral side; Note: Date Diagnose d: 07/14/20 17 3:19 PM (H90.A21 ) Not Available [facility] 4 02:40:50 Superfic ial mycosis 645563880 Active 2022 Other specifie d superfic ial mycoses; Note: Date Diagnose d: 3 2:23 PM (B36.8) Not Available [facility] 4 02:40:52 Mixed conducti ve and sensorin eural hearing loss, bilatera l 026067088 Active 2015 Mixed HL, bilatera l; Note: Date Diagnose d: 07/11/20 14 9:41 AM (389.22) ; Start Date : 07/11/20 14 Mixed conducti ve and sensorin eural hearing loss, bilatera l; Note: Date Diagnose d: 10/01/2015 8:57 AM (H90.6) [mapped from ICD9 code: 389.22] Not Available [facility] 4 02:40:52 Bilatera l disorder of Eustachi an tubes 82642800462 70751 Active 2017 Other specifie d disorder s of Eustachi an tube, bilatera l; Note: Date Diagnose d: 8 3:15 PM (H69.83) Not Available [facility] 4 02:40:51 Disorder of left Eustachi an tube 62165277738 19694 Active 2015 Other specifie d disorder s of Eustachi an tube, left ear; Note: Changed from H69.83 to H69.82 ( 6 9:00 AM) , Date Diagnose d: 10/01/2015 8:57 AM (H69.83) [mapped from ICD9 code: 381.81] Not Available [facility] 4 02:40:43 Otorrhag ia of right ear 41177675337 81758 Active 2023 Otorrhag ia, right ear; Note: Date Diagnose d: 4 3:19 PM (H92.21) Not Available [facility] 4 02:40:46 Otorrhea 01451657 Active 2013 Otorrhea ; Note: Date Diagnose d: 07/11/20 14 10:31 AM (388.60) Not Available [facility] 4 02:40:47 Impacted cerumen in right ear 80821385413 51475 Active 2016 Impacted cerumen, right ear; Note: Date Diagnose d: 7 1:53 PM (H61.21) Not Available [facility] 4 02:40:51 Impacted cerumen of bilatera l ears 91450988871 02775 Active 2018 Impacted cerumen, bilatera l; Note: Date Diagnose d: 9 10:41 AM (H61.23) Not Available [facility] 4 02:40:50 Mixed conducti ve and sensorin eural hearing loss of left ear 14395086209 107 Active 2016 Mixed conducti ve and sensorin eural hearing loss, unilater al, left ear with restrict ed hearing on the contrala teral side; Note: Date Diagnose d: 07/14/20 17 3:19 PM (H90.A32 ) Not Available [facility] 4 02:40:43 Partial loss of ear ossicles 31079634 Active 2015 Partial loss of ear ossicles , right ear; Note: Date Diagnose d: 10/01/2015 9:01 AM (H74.321 ) Not Available [facility] 4 02:40:52 Otorrhea of bilatera l ears 13217647408 76612 Active 2023 MARGY YOUNG MD [address] [place] [address], [facility] PATRICIA glass, [address] , [facility] - [facility] 4 16:28:58 Problem Notes None recorded. Procedures Surgical History Date Name Laterality Status Provider Name and Address Organization Details Recorded Time 5 Air & Speech Audio with Tymps (83045, 85122 & 77889) completed ALTHEA BARCENAS 100 [facility],[place] [address], [place], [address], [facility] 09/20/2024 10:04:02 4 EAC debris removal with microscope completed MARGY YOUNG MD 100 [facility],[place] [address], [place], [address], [facility] 07/19/2024 16:28:11 Imaging Results Imaging Date Name [...] a day 07/19 completed Medicati on ID: [id number] D uration Value: 14 Brand Name: fabian [...] unit) capsule 2013 active Medicati on ID: [id number] Br and Name: Vitamin D3 Send Method: [...] eye drops 06/30 completed Medicati on ID: [id number] Du ration Value: 24 Reason: () Brand [...] Updated DateTime 07/19/2024 170.18 cm 26.3 kg/m2 58692.52 g Kassie Werner [facility] Ear Nose [facility] 07/19/2024 16:18:33 Date Recorded Body height Body mass index (BMI) Body weight Provider Name and Address Organization Details Last Updated DateTime 09/20/2024 170.18 cm 26.6 kg/m2 04306.7 g Kathleen Ham [facility] Ear N[facility] 09/20/2024 10:53:38 Social History None recorded. Functional Status None recorded. Mental Status None recorded. Family History Nothing Reported. Medical History Condition Response Arthritis Y Hypertension Y Glaucoma Y Speech Delay Y High Cholesterol Y Past Encounters Encounter ID Performer Location Encounter Start Date Encounter Closed Date Diagnosis/Indication Diagnosis SNOMED-CT Code Diagnosis ICD10 Code Diagnosis Note [id number] MARGY YOUNG MD [facility] [address] [address] 07/19/2024 15:15:30 07/19/2024 16:35:39 Otorrhea of bilateral ears [id number] 768148 H92.13 Partial lo ss of ear ossicles 13082942 H74.321 [id number] MARGY YOUNG MD [facility] [address] [address] 09/20/2024 09:46:14 09/20/2024 11:15:42 Partial loss of ear ossicles 75677932 H74.321 Bilateral disorder of Eustachian tubes 0406620840 376844 H69.83 Mixed cond uctive and sensorineural hearing loss, bilateral 722959479 H90.6 Right Ear:Mild to profound MHL with good speech discrimina tion.Type A tympanogra m.Left Ear:Severe rising to a mild MHL sloping to a profound HF HL with good speech discrimina tion.Type B tympanogra m. [id number] ALTHEA BARCENAS [facility] [address] [address] 09/20/2024 10:03:21 09/21/2024 07:45:39 Bilateral disorder of Eustachian tubes 0358891494 732249 H69.83 Right Ear:Mild to profound MHL with [...] Member ID Guarantor Name 07/19/2024 1 MEDICARE B-[place]: [facility] [id number] 46 Roverto Fer [facility] 07/19/2024 2 AET[employer] [id number] [facility] [id number] [facility] 09/20/2024 1 MEDICARE B-[place]: [facility] Roverto Nash [id number] 46 Roverto Nash 09/20/2024 2 AETNA [id number] Roverto Nash [id number] Rover[employer] [place] 09/20/2024 1 MEDICARE B-[place]: [facility] Roverto Nash [id number] 46 Roverto Nash 09/20/2024 2 [employer] [id number] Roverto Nash [id number] Roverto Nash Notes Date Note Type [...] 4 to 5 months. MARGY YOUNG MD [address] [place] [address],[address], [address], [facility] 07/19/2024 16:31:58 09/20/2024 text/html 84-year-old male with [...] therapy.Patient using binaural ITE amplification dispensed at [facility] audiology MARGY YOUNG MD [address] [place] [address],[address], [address], [facility] - [facility] 09/20/2024 11:14:53
--- OUTSIDE RECORDS SUMMARY | 2024-12-08 16:44 | XMS_ITS | Clinical Summary ---
Author Organization 175 [facility] Address [address] [place] [address] Phone Care Team Providers Care Evp General Counsel Name Role Phone Germán Rosenberg MD Primary Care Provider + [phone] Allergies Active Allergy Reactions Criticality Noted Date [...] 11/17/2016 Immunizations Name Administration Dates Next Due [employer] SARS-CoV-2 COVID-19, mRNA, LNP-S, preservative free 05/18/2021,10/17/2020,09/26/2020 [...] 1:00 PM EDT Office Visit Pulmonolgy - [place] 175 [facility] [address] [place] [address] Jyothi Craig NP 175 [facility] [address] [place] [address] Health Maintenance Due Date Last Done Comments [...] Last [address] [place] [id number] MEDICARE AETNA Care Teams Evp General Counsel Relationship Specialty Start Date End Date Germán Rosenberg MD [address] [place] [address] PCP - General Internal Medicine 09/21/24
== END 2024-12-08 13:42 | disposition home or self-care (01) ==
LOC: HO.HAP 13:41
PROVIDERS: Visit Provider Internal Medicine
DX: Z46.1 Encounter for fitting and adjustment of hearing aid (principal); H90.6 Mixed conductive and sensorineural hearing loss, bilateral
CPT/HCPCS: 92593

== ENCOUNTER 2025-04-14 10:09 | Outpatient (REF) | payer SELFPAY ==
--- OUTSIDE RECORDS SUMMARY | 2025-04-14 10:13 | XMS_ITS | Clinical Summary ---
Author Organization 175 [facility] Address [address] [place] [address] Phone Care Team Providers Care Fast Food Restaurant Manager Name Role Phone Germán Rosenberg MD Primary Care Provider + [phone] Allergies Active Allergy Reactions Criticality Noted Date [...] TK 1 T PO QD 0 Active amLODIPine (NORVASC) 5 mg tablet Take 1 tablet (5 mg total) by mouth 1 (one) time each day. 5 Active tobramycin-dexAMETH asone (TOBRADEX) ophthalmic suspension SHAKE LIQUID AND INSTILL 4 DROPS IN AFFECTED EAR TWICE DAILY 4 Active Active Problems Problem Noted Date Diagnosed Date Glaucoma 11/05/2017 Hyperlipidemia 11/05/2017 Allergic rhinitis 11/17/2016 Obstructive sleep apnea syndrome 11/17/2016 Encounters Date Type Department Care Team Description 01/19/2025 Telephone Pulmonolgy - [address] [place] [address] Vangie Staton [place] DME-cpap supplies from Last 3 Months Immunizations Name Administration Dates Next Due [employer] SARS-CoV-2 COVID-19, mRNA, LNP-S, preservative free 05/18/2021,10/17/2020,09/26/2020 [...] Sign Reading Time Taken Comments Blood Pressure 124/78 01/10/2025 1:04 PM EDT Pulse 74 01/10/2025 1:04 PM EDT Temperature 35.6 C (96.1 F) 01/10/2025 1:04 PM EDT Respiratory Rate 16 01/10/2025 1:04 PM EDT Oxygen Saturation 96% 01/10/2025 1:04 PM EDT Inhaled Oxygen Concentration - - Weight 86.2 kg (190 lb) 01/10/2025 1:04 PM EDT Height 170.2 cm (5' 7 ) 01/10/2025 1:04 PM EDT Body Mass Index 29.76 01/10/2025 1:04 PM EDT Plan of Treatment Upcoming Encounters Date Type Department Care Team (Late st Contact Info) Description 01/10/2026 1:00 PM EDT Office Visit Pulmonolgy - [place] 175 [facility] [address] [place] [address] Jyothi Craig, [place] 175 [facility] [address] [place] [address] Health Maintenance Due Date Last Done Comments DTaP,Tdap,and Td Vaccines (1 - Tdap) 1959 Zoster Vaccines (2 of 3) 08/11/2012 06/16/2012 Pneumococcal Vaccine: 50+ Years (2 of 2 - PCV) 2015 2014 RSV Immunization Adult Patients (1 - 1-dose 75+ series) 2015 Cholesterol Screening (Lipid Panel) 07/27/2022 Falls Risk Assessment 07/27/2022 Medicare Annual Wellness Visit 07/27/2022 Social Influencers of Health Screening 07/27/2022 COVID-19 Vaccine ( season) 2024 05/07/2022, 05/18/2021, 10/17/2020, Additional history exists Depression Screening 08/24/2024 Influenza Vaccine (#1) 2025 , 05/12/2023, 05/22/2022, Additional history exists HIB Vaccines Aged Out No longer eligi [...] 20 months Aged Out No longer eligible based on patient's age to complete this topic Varicella Vaccines Aged Out No longer eligible based on patient's age to [place] [id number] MEDICARE A[employer] Care Teams Fast Food Restaurant Manager Relationship Specialty Start Date End Date Germán Rosenberg MD [address] [place] [address] PCP - General Internal Medicine 09/21/24
== END 2025-04-14 10:10 | disposition home or self-care (01) ==
LOC: HO.HAP 10:09
PROVIDERS: Visit Provider Internal Medicine
DX: Z46.1 Encounter for fitting and adjustment of hearing aid (principal)
CPT/HCPCS: V5267

== ENCOUNTER 2025-06-06 14:13 | Outpatient (AMB) | payer MEDICARE, SELFPAY ==
[2025-06-06 14:25] VITALS: BP 120/78; PULSE 62; O2SAT 98; BMI 29.2
--- NOTE | 2025-06-06 14:25 | A.OFFVIS_ITS ---
Vital Signs 06/06/25 14:25 06/06/25 14:27 Height 5 ft 7 in 5 ft 7 in Weight 186 lb 4 oz 186 lb 4 oz BMI 29.2 29.2 BP 120/78 Blood Pressure Location Rt brachial Position Sitting Pulse 62 Pulse Source Pulse Oximeter Pulse Oximetry (%) 98 Oxygen Delivery Method Room Air Intake Visit Reasons: 6 mnts f/u appt Intake Note: Patient presents follow up Neuropathy. Patient states symptoms are about the same. Accompanied by: Self / Same As Patient Allergies No Known Allergies Allergy (Verified 06/06/25 14:28) HPI Comments Details: 84y/o male comes for a follow up of his chronic bilateral upper/ lower extremity neuropathy. DAVID Compliance report February 2025 - Apr 2025- on my AIR aleena. Total Avg use is 90/90 days with >9 hours and 14min per night. AHI is 1.06. Pressures Leaks He washes his mask, rinses hoses, changes filters and fills reservoir with water. He has bilateral hand pain which improves with wrist braces, he has a h/o of R. hand carpal tunnel release of median nerve. He continues to have paresthesias of his second and third digits for years, the r. thumb has normal sensation. His l. hand gets numb only at night and he takes gabapentin 300mg po at bedtime as this helps with the burning pain. 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 RLS symptoms in bilaterally in lower extremities, with cramps and spasms, constant numbness and tingling from the plantar surface to the knees. His balance is good, denies falls, denies headaches, vertigo, dizziness. He is independent in all ADLS, lives with his at home, he is able to shower, dress himself, he cleans the house and descends down stair to get laundry. He goes shopping for groceries and is able to complete all finances. He has children and family in the area and they visit every other day. His diet is normal and he stays well hydrated. Memory and mood is stable. [facility] Medical History Carpal tunnel syndrome on both sides Hyperlipidemia Carpal tunnel syndrome Hearing loss HTN (hypertension) Arthritis Neck pain Surgical History History of carpal tunnel release Hx of cataract surgery Social History Household Members: Spouse Alcohol intake: current Alcohol intake frequency: holidays/special occasions on ly Patient Tobacco Use Status: Former Tobacco user Physical Exam Vital Signs: Last Vital Signs Pulse 62 06/06/25 14:25 BP 120/78 06/06/25 14:25 Pulse Ox 98 06/06/25 14:25 Oxygen Delivery Method Room Air 06/06/25 14:25 BMI result Body Mass Index 29.2 Const General: cooperative, healthy appearing and comfortable Nutritional Appearance: average body habitus Orientation/consciousness: patient oriented x3 Eyes Pupils: Equal, round and reactive pupils present Neuro General: patient oriented x3 and moves all extremities Cranial nerves: Yes CN's II-XII intact bilaterally, Yes Facial sensation intact/muscles of mastication intact, Yes Equal, round and reactive pupils present and Yes Normal facial strength present Cognition (Neuro): normal cognition Gait exam (Neuro): Antalgic gait present and Other gait observations present (mild slowness, mild off balance) Motor exam (neuro): Abnormal motor strength present and Abnormal muscle tone present Psych Appearance: well kempt Speech and movement: Slowed movement present (Neuro) Attitude: cooperative Thought process: Normal thought process present Thought content: Normal thought content present Results Reviewed Results Reviewed: MPRESSION: 1. This is an abnormal study. 2. There is electrodiagnostic evidence for left moderate-severe median neuropathy at the wrist, consistent with carpal tunnel syndrome. 3. Despite previous surgery, there is still electrodiagnostic evidence for right chronic mild median neuropathy at the wrist. 4. There is no electrodiagnostic evidence for ulnar neuropathy, brachial plexopathy, or cervical radiculopathy. Assessment & Plan Assessment & Plan (1) Carpal tunnel syndrome on both sides: Code(s): G56.03 - Carpal tunnel syndrome, bilateral upper limbs Category: Medical (2) Cervical spondylosis: Code(s): M47.812 - Spondylosis without myelopathy or radiculopathy, cervical region Category: Medical (3) Spinal stenosis of cervical region: Code(s): M48.02 - Spinal stenosis, cervical region Category: Medical (4) Neuropathy: Code(s): G62.9 - Polyneuropathy, unspecified Category: Medical (5) Nocturnal leg cramps: Code(s): G47.62 - Sleep related leg cramps Category: Medical (6) DAVID on CPAP: Code(s): G47.33 - Obstructive sleep apnea (adult) (pediatric) Category: Medical Plan RLS symptoms continue gabapentin 300mg qhs Continue to stay active and use a cane as needed to ambulate. Wrist splints keren hands for CTS h/o median nerve releasse. Reviewed EMG / NCS with pt today. Patient Instructions: Sleep Hygiene provided: set a scheduled bedtime and wake time to help regulate the circadian rhythm and balance the release of pituitary hormones. Sleep in a dark room, temperatures below 68 degrees, and no devices n bed. Limit caffeinated products 6 hours prior to bed, and limit fluids 2-4 hours prior to bed. Gentle night yoga, diffusing essential oils, and playing soft music can be relaxing. Coding Level of Care Code Est Pt Level 4 (65095) Diagnoses Carpal tunnel syndrome on both sides G56.03 Cervical spondylosis M47.812 Spinal stenosis of cervical region M48.02 Neuropathy G62.9 Nocturnal leg cramps G47.62 DAVID on CPAP G47.33
[2025-06-06 14:27] VITALS: BMI 29.2
--- OUTSIDE RECORDS SUMMARY | 2025-06-06 17:11 | XMS_ITS | Data Portability ---
Author Organization [place] - [facility], Allergy Address [address] [address] Care Team Providers Care Heating Element Winder Name Role Phone REYNALDO PEACE Primary Care [...] to assess his response to prosthesis removal. 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 Follow-up with PA in 6 months for next tube check. Not available 09/20/2024 11:14:42 03/21/2025 03/21/2025 84yo male with chronic eustachian tube dysfunction and left T tube presents for reevaluation. On examination, the left T-tube is extruding serous otorrhea. This started 2-3 weeks ago. TMs are generally thickened. External auditory canals are without obstruction or purulence. Recommend a short course of topical ofloxacin into the left EAC. Patient will follow-up when convenient for repeat hearing evaluation, sooner if otorrhea persists. [email or web address] Not available 03/21/2025 17:02:53 Plan of Treatment Reminders Order Date Submit Date Provider Last Modified By Organization Details Last Modified Time Details Appointments Hearing Test 2024 02:30P M Hearing Test Not available Not available Not available Establish ed 10 2024 03:00P M MARGY YOUNG MD Not available Not available Not available Lab None recorded. Referral None recorded. Procedures None recorded. Surgeries None recorded. Imaging None recorded. Medication Orders ofloxacin 0.3 % ear drops 2024 025 [id number], [address] [place], [place], [phone], 03/21/2025 15:00:57 ciproflox acin 0.3 %-dexamet hasone 0.1 % ear drops,lanie pension 2023 025 [id number], [address] [place], [place], [phone], 09/20/2024 10:54:05 Patient TargetsNo targets recorded. Patient [...] Name and Address Organization Details Recorded Time Dysfunct ion of eustachi an tube 90795618 Active 2013 Eustachi an tube dysfunct ion; Note: Date Diagnose d: 07/11/20 14 10:31 AM (381.81) Not Available [facility] 4 02:40:46 Otorrhea 03197580 Active 2013 Otorrhea ; Note: Date Diagnose d: 07/11/20 14 10:31 AM (388.60) Not Available [facility] 4 02:40:47 Mixed conducti ve and sensorin eural hearing loss, bilatera l 014416283 Active 2015 Mixed HL, bilatera l; Note: Date Diagnose d: 07/11/20 14 9:41 AM (389.22) ; Start Date : 07/11/20 14 Mixed conducti ve and sensorin eural hearing loss, bilatera l; Note: Date Diagnose d: 10/01/2015 8:57 AM (H90.6) [mapped from ICD9 code: 389.22] Not Available [facility] 4 02:40:52 Disorder of left Eustachi an tube 22070102583 18078 Active 2015 Other specifie d disorder s of Eustachi an tube, left ear; Note: Changed from H69.83 to H69.82 ( 6 9:00 AM) , Date Diagnose d: 10/01/2015 8:57 AM (H69.83) [mapped from ICD9 code: 381.81] Not Available [facility] 4 02:40:43 Partial loss of ear ossicles 77406060 Active 2015 Partial loss of ear ossicles , right ear; Note: Date Diagnose d: 10/01/2015 9:01 AM (H74.321 ) Not Available [facility] 4 02:40:52 Dizzines s and giddines s 430544961 Active 2015 Dizzines s and giddines s; Note: Date Diagnose d: 6 8:47 AM (R42) Not Available [facility] 4 02:40:44 Otorrhea of left ear 88311838366 25174 Completed 201603/25/2024 Otorrhea , left ear; Note: Date Diagnose d: 7 1:53 PM (H92.12) RAFAEL PETTIT PA-C [address] [place] [address] [address], [facility] [place], [address] , [facility] - [facility] 5 14:59:17 Impacted cerumen in right ear 44633523711 55792 Active 2016 Impacted cerumen, right ear; Note: Date Diagnose d: 7 1:53 PM (H61.21) Not Available [facility] 4 02:40:51 Sensorin eural hearing loss in right ear 97438185361 100 Active 2016 Sensorin eural hearing loss, unilater al, right ear, with restrict ed hearing on the contrala teral side; Note: Date Diagnose d: 07/14/20 17 3:19 PM (H90.A21 ) Not Available [facility] 4 02:40:50 Mixed conducti ve and sensorin eural hearing loss of left ear 90065345845 107 Active 2016 Mixed conducti ve and sensorin eural hearing loss, unilater al, left ear with restrict ed hearing on the contrala teral side; Note: Date Diagnose d: 07/14/20 17 3:19 PM (H90.A32 ) Not Available [facility] 4 02:40:43 Bilatera l disorder of Eustachi an tubes 18115454628 27561 Active 2017 Other specifie d disorder s of Eustachi an tube, bilatera l; Note: Date Diagnose d: 8 3:15 PM (H69.83) Not Available [facility] 4 02:40:51 Impacted cerumen of bilatera l ears 29961354465 29030 Active 2018 Impacted cerumen, bilatera l; Note: Date Diagnose d: 9 10:41 AM (H61.23) Not Available [facility] 4 02:40:50 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 Other specifie d superfic ial mycoses; Note: Date Diagnose d: 3 2:23 PM (B36.8) Not Available [facility] 4 02:40:52 Polyp of right middle ear 53121274777 Active 2023 Polyp of right middle ear; Note: Date Diagnose d: 4 3:19 PM (H74.41) Not Available [facility] 4 02:40:48 Otorrhag ia of right ear 30422992322 47689 Active 2023 Otorrhag ia, right ear; Note: Date Diagnose d: 4 3:19 PM (H92.21) Not Available [facility] 4 02:40:46 Otorrhea of bilatera l ears 71816673763 Active 2023 MARGY YOUNG MD [address] [place] [address],[place] [address], [place], [address] , [facility] - [facility] 4 16:28:58 Otorrhea of left ear 08778298595 54004 Active 2024 Otorrhea , left ear; Note: Date Diagnose d: 7 1:53 PM (H92.12) RAFAEL PETTIT PA-C [address] [place] [address],[place] [address], [place], [address] , [place] - [facility] 5 14:59:16 Problem Notes None recorded. Procedures Surgical History Date Name Laterality Status Provider Name and Address Organization Details Recorded Time 5 Air & Speech Audio with Tymps - 84109, 46345 & 32788 completed ALTHEA BARCENAS [address] [place] [address],[place] [address], [place], [address], [facility] - [facility] 09/20/2024 10:04:02 4 EAC debris removal with microscope completed MARGY YOUNG MD [address] [place] [address],[address], [address], [facility] - [facility] 07/19/2024 16:28:11 Imaging Results None recorded. Procedure Notes None recorded. Medical Equipment None Reported. Allergies No known drug allergies Medications Name Sig Start Date Stop Date Status Note LastModified by Organization Details LastModified Time latanopro st 0.005 % eye drops INSTILL ONE DROP INTO EACH EYE AT BEDTIME active Not Available Not Available No t Available atorvasta tin 20 mg tablet TAKE 1 TABLET BY MOUTH EVERY DAY active Not Available Not Available No t Available lisinopri l 20 mg tablet TAKE 1 TABLET BY MOUTH EVERY DAY active Not Available Not Available No t Available amlodipin e 5 mg tablet TAKE 1 TABLET BY MOUTH EVERY DAY active Not Available Not Available No t Available ofloxacin 0.3 % ear drops INSTILL 5 DROPS TO AFFECTED EAR TWICE DAILY FOR 7 DAYS active Not Available Not Available No t Available benzonata te 100 mg capsule TAKE 1 CAPSULE BY MOUTH THREE TIMES DAILY FOR 5 DAYS FOR COUGH active Not Available Not Available No t Available clotrimaz ole-betam ethasone 1 %-0.05 % topical cream Apply 1 a small amount twice a day 07/19 completed Medicati on ID: [id number] D uration Value: 14 Brand Name: clotrimalinda norrisranda-hunter cardoza ne Send Method: E-Prescr ibed Sub s Allowed: subs OK Speci al Instruct ion: Apply with fingerti p to external ear TID X 2 week and as needed M edicarodolfo Wilkinson Name: clotrima norrise-bet amethaso ne Not Available Not Available Not Available lisinopri l 10 mg tablet TAKE 1 TABLET BY MOUTH EVERY DAY 07/19 completed Not Available Not Available Not Available gabapenti n 300 mg capsule TAKE 1 CAPSULE BY MOUTH TWICE DAILY EVERY DAY active Not Available Not Available [...] unit) capsule 2013 active Medicati on ID: [id number] Br and Name: Vitamin D3 Send Method: [...] eye drops 06/30 completed Medicati on ID: [id number] Du ration Value: 24 Reason: () Brand [...] Updated DateTime 09/20/2024 170.18 cm 26.6 kg/m2 56925.7 g Kathleen Ham [place] - [facility] 09/20/2024 10:53:38 Date Recorded Body height Body mass index (BMI) Body weight Provider Name and Address Organization Details Last Updated DateTime 03/21/2025 170.18 cm 29.1 kg/m2 44746.18 g Leanne Ivy [facility] 03/21/2025 14:49:53 Date Recorded Body height Body mass index (BMI) Body weight Provider Name and Address Organization Details Last Updated DateTime 07/19/2024 170.18 cm 26.3 kg/m2 97118.52 g Kassie Werner [facility] 07/19/2024 16:18:33 Social History None recorded. Functional Status None recorded. Mental Status None recorded. Family History Nothing Reported. Medical History Condition Response Arthritis Y Hypertension Y Glaucoma Y Speech Delay Y High Cholesterol Y Past Encounters Encounter ID Performer Location Encounter Start Date Encounter Closed Date Diagnosis/Indication Diagnosis SNOMED-CT Code Diagnosis ICD10 Code Diagnosis IMO Codes Diagnosis Note [id number] MARGY YOUNG MD [facility] [address] [address] 07/19/2024 15:15:30 07/19/2024 16:35:39 Otorrhea of bilateral ears 6457044538 830743 H92.13 Partial lo ss of ear ossicles 82095275 H74.321 [id number] MARGY YOUNG MD [facility] [address] [address] 09/20/2024 09:46:14 09/20/2024 11:15:42 Partial loss of ear ossicles 57541469 H74.321 Bilateral disorder of Eustachian tubes 0503030706 667339 H69.83 Mixed cond uctive and sensorineural hearing loss, bilateral 654365440 H90.6 Right Ear:Mild to profound MHL with good speech discrimina tion.Type A tympanogra m.Left Ear:Severe rising to a mild MHL sloping to a profound HF HL with good speech discrimina tion.Type B tympanogra m. [id number] ALTHEA BARCENAS [facility] [address] [address] 09/20/2024 10:03:21 09/21/2024 07:45:39 Bilateral disorder of Eustachian tubes 8028921576 072875 H69.83 Right Ear:Mild to profound MHL with good speech discrimina tion.Type A tympanogra m.Left Ear:Severe rising to a mild MHL sloping to a profound HF HL with good speech discrimina tion.Type B tympanogra m. [id number] RAFAEL PETTIT PA-C [facility] [address] [address] 03/21/2025 14:46:04 03/21/2025 15:02:06 Otorrhea of left ear 0156924156 007534 H92.12 1120487 Mixed cond uctive and sensorineural hearing loss, bilateral 640120826 H90.6 Health Concerns Section Related Observation LastModified by Organization Detai ls LastModified Time None Recorded Concern Status LastModified by Organization Details LastModified Time None Recorded Advance Directives Directive None Recorded Payers Insurance Date Sequence Insurance Name Policy Number Policy Kimble Covered Member ID Kimble Member ID Guarantor Name 03/21/2025 1 [place]ICARE [place]: [employer] Roverto Nash [id number] Roverto aNsh 03/21/2025 2 [employer] [id number] Roverto Nash [id number] Roverto Nash Notes Date Note Type [...] 4 to 5 months. MARGY YOUNG MD [address] [facility],[place] [address], [place], [address], [facility] - [facility] 07/19/2024 16:31:58 09/20/2024 text/html 84-year-old male with [...] therapy.Patient using binaural ITE amplification dispensed at [facility] audiology MARGY YOUNG MD [address] [facility] [place],[address], [place], [address], [facility] 09/20/2024 11:14:53 03/21/2025 text/html ROS as noted in the HPI 84yo male with chronic eustachian tube dysfunction and left T tube presents for reevaluation. Patient reports left-sided ear drainage for a couple weeks, but ran out eardrops. He denies ear pain or hearing changes. He is followed by audiology at [facility]. MARGY YOUNG MD [address] [facility] [place],[address], [place], [address], [facility] - [facility] 03/22/2025 17:01:36
== END 2025-06-06 15:08 | disposition home or self-care (01) ==
LOC: HO.HSMS 14:14
PROVIDERS: PCP Internal Medicine; Visit Provider Physician Assistant Medical
DX: G56.03 Carpal tunnel syndrome, bilateral upper limbs (principal); M47.812 Spondylosis without myelopathy or radiculopathy, cervical region; M48.02 Spinal stenosis, cervical region; G62.9 Polyneuropathy, unspecified; G47.62 Sleep related leg cramps; G47.33 Obstructive sleep apnea (adult) (pediatric)
CPT/HCPCS: 99214

== ENCOUNTER → 2025-06-06 14:13 | Outpatient (BNVA) | payer MEDICARE, SELFPAY | PROVIDERS: PCP Internal Medicine; Visit Provider Physician Assistant Medical | DX: G62.9 Polyneuropathy, unspecified (principal); G56.03 Carpal tunnel syndrome, bilateral upper limbs; G47.33 Obstructive sleep apnea (adult) (pediatric); G47.62 Sleep related leg cramps; M47.812 Spondylosis without myelopathy or radiculopathy, cervical region; M48.02 Spinal stenosis, cervical region; Z99.89 Dependence on other enabling machines and devices | CPT/HCPCS: 99212 ==